=== PATIENT | male | born 1985 | race Caucasian/White ===

== ENCOUNTER 2018-08-22 17:10 | Emergency (ER) | payer MEDICAID ==
[~2018-08-22] VITALS: Ht 162.6 cm; Wt 95.3 kg
[2018-08-22 17:49] VITALS: BP 132/86
[2018-08-22] MEDS ORDERED: KETOROLAC 60 MG/2 ML VIAL IM ONE (21:00)
[2018-08-22 21:25] VITALS: BP 130/88
== END 2018-08-22 21:25 | disposition home or self-care (01) ==
LOC: MED 17:10
DX: K64.9 Unspecified hemorrhoids (principal)
CPT/HCPCS: 96372; 99283; J1885

== ENCOUNTER 2023-08-10 08:09 | Emergency (ER) | payer MEDICAID ==
[~2023-08-10] VITALS: Ht 157.5 cm; Wt 64.9 kg
[2023-08-10 08:19] VITALS: BP 119/80; PULSE 80; RESP 15; TEMP 98.4; O2SAT 98
[2023-08-10 08:45] VITALS: O2SAT 98
[2023-08-10] MEDS ORDERED: ACETAMINOPHEN EXTRA STRENGTH 500 MG TAB PO ONE (08:55)
[2023-08-10] MEDS ORDERED: IBUPROFEN 600 MG TAB PO ONE (08:55)
[2023-08-10] MEDS ORDERED: IBUP-2213 PO (09:51)
[2023-08-10] MEDS ORDERED: ACET-10509 PO (09:51)
== END 2023-08-10 10:05 | disposition home or self-care (01) ==
LOC: MED 08:09
DX: S90.01XA Contusion of right ankle, initial encounter (principal); E11.9 Type 2 diabetes mellitus without complications; Z79.899 Other long term (current) drug therapy; Z79.1 Long term (current) use of non-steroidal anti-inflammatories (NSAID); W22.8XXA Striking against or struck by other objects, initial encounter; Y92.89 Other specified places as the place of occurrence of the external cause; Y93.89 Activity, other specified; Y99.8 Other external cause status
CPT/HCPCS: 29515; 73610; 99283